=== PATIENT | female | born 1985 | race Caucasian/White ===

== ENCOUNTER → 2018-03-10 14:32 | Outpatient (CLI) | payer SELFPAY ==
--- NOTE | 2018-03-10 14:34 | CA_ITS ---
PROCEDURE: 2-D M-mode and color Doppler study INDICATIONS FOR THE TEST: Chest pain+ COPD Heart Murmur Tobacco Smoking Palpitations Fatigue Syncope Edema Hypertension+Diabetes Mellitus Rheumatic Fever SOB KULKARNI+Obesity Hyperlipidemia Family History HD Additional History PATIENT INFORMATION HEIGHT: 64 WEIGHT: 189 GENDER: Female B/P: 152/104 2-D/M-MODE INTERPRETATION: 2-D MEASUREMENTS OBSERVED VALUES IN CMS Right Ventricular Dimension (RVDd) 2.1 Interventricular Septum (Thickness)(IVsd) 0.9 Left Ventricular Internal Dimensions(LVIDd) 4.8 Left Ventricular Posterior Wall (Thickness)(LVPWd) 0.8 Aortic Root 2.7 Aortic Cusp Separation 1.8 Left Atrial Dimensions (LAD) 3.7 2D 1. Left atrium is mildly enlarged, left ventricle is normal size, visually estimated ejection fraction 50% with mild apical wall hypokinesis. 2. The right atrium and right ventricle are normal size and function. 3. The aortic valve is minimally thickened . 4. The mitral and tricuspid valve leaflets are minimally thickened. 5. The pulmonic valve is poorly visualized 6. No significant pericardial effusion noted. DOPPLER INTERROGATION: Doppler interrogation of the aortic, mitral and tricuspid valvular presence of mild aortic, mitral and tricuspid regurgitation, tricuspid and jet velocity insufficient for calculation of the right ventricular systolic pressure, diastolic parameters are within normal range. CONCLUSION: 1. Mildly enlarged left atrium, normal left ventricular size, visually estimated ejection fraction 50% with segmental wall motion abnormality described above. Diastolic parameters are within normal range. 2. Mild aortic, mitral and tricuspid regurgitation. 3. No significant pericardial effusion noted.
== END ==
PROVIDERS: Referring Provider Internal Medicine; Visit Provider Internal Medicine Cardiovascular Disease
DX: R06.00 Dyspnea, unspecified (principal); R07.9 Chest pain, unspecified; R51 Headache; I10 Essential (primary) hypertension; G43.909 Migraine, unspecified, not intractable, without status migrainosus
CPT/HCPCS: 93306

== ENCOUNTER → 2018-03-20 09:16 | Outpatient (CLI) | payer SELFPAY | PROVIDERS: Visit Provider Internal Medicine Cardiovascular Disease | DX: R07.9 Chest pain, unspecified (principal); I10 Essential (primary) hypertension | CPT/HCPCS: 93017 ==

== ENCOUNTER → 2018-04-15 13:30 | Outpatient (CLI) | payer SELFPAY ==
[2018-04-15 15:32] LABS: Blood Urea Nitrogen 10 mg/dL (7-18); Creatinine,Serum 0.72 mg/dL (0.55-1.02); Estimated Glomerular Filt Rate 93 ml/min (>60); GFR (African American) 112 ML/MIN (>60)
== END ==
PROVIDERS: Internal Medicine Cardiovascular Disease; Visit Provider Internal Medicine
DX: R07.89 Other chest pain (principal); R06.02 Shortness of breath; R53.83 Other fatigue; I10 Essential (primary) hypertension
CPT/HCPCS: 36415; 82565; 84520

== ENCOUNTER → 2018-04-21 07:24 | Outpatient (CLI) | payer SELFPAY ==
--- NOTE | 2018-04-21 07:26 | CT_ITS ---
CT angio coronary artery NDICATION: ITS.REASON: chest pain, dyspnea, HTN ORDERING PHYSICIAN: Lowell Gee MD PATIENT AGE: 32 years COMPARISON: None TECHNIQUE: Study was originally performed on 04/21/2018. 10 mg of metoprolol IV was given to maintain bradycardia however, the patient's rhythm was slightly irregular. 2 runs were performed and there was persistent motion artifact especially of the right coronary artery. No anatomic abnormalities were evident however, could not evaluate for the possibility of stenosis of the RCA. The exam was then repeated on 04/29/2018. The patient was given 20 mg by mouth metoprolol with a before the exam and 10 mg of Valium the morning of the exam. Patient's pulse rate was in the low 60s but with slightly irregular. 5 mg IV metoprolol was given and the pulse was below 60 with regular interval. 70 mL of Isovue-370 injected bolus technique with gated images obtained and deemed to be satisfactory. Multiplanar reformats and 3-D reformatted images are generated. FINDINGS: No anatomic variants are evident of the coronary arteries. Left main coronary artery, LAD, and circumflex have an unremarkable appearance. RCA has an unremarkable appearance as well. The RCA gives rise to the PDA and posterolateral branch to the left ventricle. There was some misregistration artifact noted in the RCA and circumflex IMPRESSION: Negative CTA of the coronary arteries.
== END ==
PROVIDERS: Visit Provider Internal Medicine
DX: R07.89 Other chest pain (principal); R06.02 Shortness of breath; I10 Essential (primary) hypertension; R53.83 Other fatigue
CPT/HCPCS: 75574; Q9967

== ENCOUNTER → 2018-04-29 07:03 | Outpatient (CLI) | payer SELFPAY ==
--- NOTE | 2018-04-29 07:05 | CT_ITS ---
CT angio coronary artery INDICATION: ITS.REASON: chest pain, dyspnea, HTN ORDERING PHYSICIAN: Lowell Gee MD PATIENT AGE: 32 years COMPARISON: None TECHNIQUE: Study was originally performed on 04/21/2018. 10 mg of metoprolol IV was given to maintain bradycardia however, the patient's rhythm was slightly irregular. 2 runs were performed and there was persistent motion artifact especially of the right coronary artery. No anatomic abnormalities were evident however, could not evaluate for the possibility of stenosis of the RCA. The exam was then repeated on 04/29/2018. The patient was given 20 mg by mouth metoprolol with a before the exam and 10 mg of Valium the morning of the exam. Patient's pulse rate was in the low 60s but with slightly irregular. 5 mg IV metoprolol was given and the pulse was below 60 with regular interval. 70 mL of Isovue-370 injected bolus technique with gated images obtained and deemed to be satisfactory. Multiplanar reformats and 3-D reformatted images are generated. FINDINGS: No anatomic variants are evident of the coronary arteries. Left main coronary artery, LAD, and circumflex have an unremarkable appearance. RCA has an unremarkable appearance as well. The RCA gives rise to the PDA and posterolateral branch to the left ventricle. There was some misregistration artifact noted in the RCA and circumflex IMPRESSION: Negative CTA of the coronary arteries.
== END ==
PROVIDERS: PCP Internal Medicine Cardiovascular Disease; Visit Provider Internal Medicine Cardiovascular Disease
DX: R07.9 Chest pain, unspecified (principal); R06.00 Dyspnea, unspecified; I10 Essential (primary) hypertension